=== PATIENT | male | born 1995 | race Caucasian/White ===

== ENCOUNTER 2020-11-07 19:16 | Emergency (ER) | payer MEDICAID, OTHER ==
[~2020-11-07] VITALS: Ht 172.7 cm; Wt 69.5 kg
[2020-11-07 19:17] VITALS: BP 119/54
[2020-11-07] MEDS ORDERED: LIDOCAINE-MPF 1%, 5ML INFIL ONE (19:30)
[2020-11-07] MEDS ORDERED: LIDOCAINE-MPF 1%, 5ML ONE ×2 (19:48→20:38)
--- NOTE | 2020-11-07 20:09 | NUR ---
report from pablo berger
--- NOTE | 2020-11-07 20:44 | NUR ---
jose rafael at bedside for lac repair.
[2020-11-07] MEDS ORDERED: NEOSPORIN OINT. PKT 1 PACKET ONE (21:19)
== END 2020-11-07 21:39 | disposition home or self-care (01) ==
LOC: ED 21:15
DX: S61.213A Laceration without foreign body of left middle finger without damage to nail, initial encounter (principal); X58.XXXA Exposure to other specified factors, initial encounter; Y93.89 Activity, other specified; Y92.89 Other specified places as the place of occurrence of the external cause; Y99.8 Other external cause status
CPT/HCPCS: 12041; 99284